=== PATIENT | male | born 1965 | race Two or more races ===

== ENCOUNTER 2018-07-24 09:13 | Inpatient (IN) | payer SELFPAY ==
[~2018-07-24] VITALS: Ht 167.6 cm; Wt 83.9 kg
[2018-07-24] VITALS (11 sets, daily range): BP systolic 120–137; BP diastolic 76–85
--- NOTE | 2018-07-24 11:12 | PDOC ---
Provider Note Provider Note 07/24/2018 1100 Pt admitted initially at [facility]. Presentation with unstable angina features. See by cardiology over there. Transferred to [facility] for LHC. Heparin in place. Reviewed risks and benefits and agreeable to proceed. NOAH DINERO INFORMATION CLERK Jul 24, 2018 11:12
[2018-07-24] MEDS ORDERED: HEPARIN 25,000UTS/500ML PREMIX 500 ML IV PRN (11:30)
[2018-07-24] MEDS ORDERED: MORPHINE SULFATE 2 MG/ML VIAL. IV PRN (11:30)
[2018-07-24] MEDS ORDERED: ONDANSETRON PF 4 MG/2 ML VIAL. IV PRN (11:30)
[2018-07-24] MEDS ORDERED: NITROGLYCERIN SUBLINGUAL 0.4 MG BOTTLE OF 25. SL PRN (11:30)
[2018-07-24] MEDS ORDERED: ACETAMINOPHEN 325 MG TABLET. PO PRN (11:30)
[2018-07-24] MEDS ORDERED: LIDOCAINE 1% PF 2 ML VIAL. ONE (12:01)
[2018-07-24] MEDS ORDERED: IOHEXOL 300 MG/ML 100ML VIAL. ONE (12:01)
[2018-07-24] MEDS ORDERED: MIDAZOLAM HCL/PF 2 MG/2 ML VIAL. ONE (12:56)
[2018-07-24] MEDS ORDERED: fentaNYL PF VIAL 100 MCG/2 ML VIAL ONE (12:56)
[2018-07-24] MEDS ORDERED: HEPARIN for IV BOLUS 10,000 UNIT/10 ML VIAL. ONE (12:56)
[2018-07-24] MEDS ORDERED: VERAPAMIL 5 MG/2 ML VIAL. ONE (12:56)
[2018-07-24] MEDS ORDERED: NITROGLYCERIN 200 MCG/2 ML SYRINGE FOR CATH/VASC LAB. ONE (12:57)
--- NOTE | 2018-07-24 13:29 | PDOC ---
MODERATE SEDATION ASSESSMENT RISKS/ALTERNATIVES Risks/Alternatives Risks and alternatives of this type of sedation and procedure discussed with: RISK/ALTERNATIVES: Patient H & P ON CHART H & P H & P on chart and reviewed for co-morbid conditions and appropriate labs. H&P ON CHART: Yes STATUS PREG STATUS ASSESSED: N/A MEDS/ALLERGIES REVIEWED Meds/Allergies Reviewed Medications and Allergies including time and route of recently administered narcotics and sedatives. MEDS/ALLERGIES REVIEWED: Yes ASA RATING ASA RATING: II AIRWAY ASSESSMENT Airway Assessment Airway patency, oral function limitations, presence of caps, crowns, dentures, partials, and ability to extend neck assessed. AIRWAY ASSESSMENT: Yes MALLAMPATI SCORE MALLAMPATI SCORE: II PRE-SEDATION ASSESSMENT PRE-SEDATION ASSESSMENT: Yes MONICA CRUZ MD Jul 24, 2018 13:29
[2018-07-24] MEDS ORDERED: MIDAZOLAM HCL/PF 2 MG/2 ML VIAL. IV ONE (13:30)
[2018-07-24] MEDS ORDERED: NITROGLYCERIN 200 MCG/2 ML SYRINGE FOR CATH/VASC LAB. IART ONE (13:30)
[2018-07-24] MEDS ORDERED: IOHEXOL 300 MG/ML 100ML VIAL. IART ONE (13:30)
[2018-07-24] MEDS ORDERED: HEPARIN for IV BOLUS 10,000 UNIT/10 ML VIAL. IART ONE (13:30)
[2018-07-24] MEDS ORDERED: VERAPAMIL 5 MG/2 ML VIAL. IART ONE (13:30)
[2018-07-24] MEDS ORDERED: fentaNYL PF VIAL 100 MCG/2 ML VIAL IV ONE (13:30)
[2018-07-24] MEDS ORDERED: LIDOCAINE 1% PF 2 ML VIAL. INJ ONE (13:30)
[2018-07-24] MEDS ORDERED: IV 1/2 NORMAL SALINE 1,000 ML IV SCH (13:30)
[2018-07-24] MEDS ORDERED: TAMS0.4C97 PO (13:37)
--- NOTE | 2018-07-24 13:37 | CARD ---
MR#: [id number] Date of Study: 07/24/2018 Ordering Physician: MONICA ARENAS, Referring Physician: IGOR SEGURA Tech: RT Allen (R) APPROVED REPORT Technologist: RT Allen (R) Nurse: Karlee Schwartz R.N. Procedure(s) performed: Left heart catheterization, selective coronary angiography and left ventricul ography via right transradial approach Moderate sedation: 23 minutes INDICATION The indication(s) include : unstable angina . PROCEDURE NARRATIVE After explaining the risks, benefits and alternative options, informed consent was obtained from maeve ent. Patient was brought to the cardiac [facility] and right wrist was prepped and draped in the usual fashion after confirming a positive modified Kartik's test. Arterial access was obtained in the righ t radial artery and a 6 [place]an sheath was inserted. 6 [place] Maciel and 6 [place] JL 3.5 catheters we re used to perform selective angiography of the right and left coronary arteries. 6 [place] pigtail c atheter was used to perform left ventriculography. Patient tolerated the procedure well. Hemostasis was achieved using TR band. There were no immediate complications. The following findings were not ed. FINDINGS 1. Hemodynamics: Left ventricular end-diastolic pressure of 142mmHg. No pullback gradient across th e aortic valve. 2. Left ventriculography: Normal left ventricle systolic function with ejection fraction estimated at 60%. No significant mitral regurgitation seen. 3. Coronary angiography: a. The left main coronary artery arose from the left sinus of Valsalva, gave rise to the left anteri or descending and left circumflex arteries and did not show any significant stenosis. b. The left anterior descending artery showed minimal luminal irregularities without any significant stenosis. c. The left circumflex artery did not show any significant stenosis. d. The right coronary artery was a large and dominant vessel arising from the right sinus of Valsalv a that did not show any significant stenosis. Conclusion 1. No significant coronary artery disease 2. Normal left ventricle systolic function with ejection fraction estimated at 60%. Signed by : Monica Arenas, Electronically Approved : 07/24/2018 13:36:47
[2018-07-24] MEDS ORDERED: SIMV20TA3 PO (15:42)
[2018-07-24] MEDS ORDERED: ASPI-630 PO (15:43)
--- NOTE | 2018-07-25 08:53 | SSS ---
ADMIT DATE: HISTORY OF PRESENT ILLNESS: The patient is a 53-year-old male patient who was seen in the Emergency Room of [facility]. He reported onset of pain during light activity. He describes pressure in mid left chest, nonradiating with associated racing of his heart, lightheadedness and dyspnea. He had coworkers called 911 and was transported to the emergency department. The pain has lasted about 15 minutes and since then has had pressure off and on throughout the night. He reports improvement in nitrates, had also complained of mild dyspnea with exertion recently and believes it could be asthma, but has no official diagnosis of such. He reports episodes of palpitation lasting about 5 seconds at a time without associated symptoms, has had recent upper respiratory infection including congestion, headache, Namenda a mild nonproductive cough. He denied any fever or chills. 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 He was evaluated in the emergency room. His initial troponin was elevated and therefore, he was admitted to telemetry bed in [facility] and had 2 more sets of cardiac enzymes that are elevated. He was seen in consultation by the cardiology team and it was felt that the patient's chest pain was consistent with unstable angina with mild troponin elevation and was started on heparin, aspirin, nitrates. No beta blockers due to marked bradycardia, was transferred to [facility] where he underwent cardiac catheterization, which showed that the left ventricular end diastolic pressure was 142 mmHg. No pullback gradient across the aortic valve. His left ventriculography showed normal left ventricular systolic function, ejection fraction of 60%, no significant mitral regurgitation seen. Coronary angiography showed that the left main coronary artery arose from the left sinus of Valsalva, gave rise to left anterior descending and left circumflex arteries and did not show any significant stenosis. The left anterior descending artery showed minimal luminal irregularities without any significant stenosis. The left circumflex artery did not show any significant stenosis in the right coronary artery was a large and dominant vessel arising from the right sinus of Valsalva and did not show any significant stenosis and then the conclusion is that the patient has no significant coronary artery disease, normal left ventricular systolic function, ejection fraction of 60% and the patient was basically discharged to continue on aspirin 81 mg once a day, simvastatin 20 mg at bedtime and tamsulosin 0.4 mg at bedtime. PAST MEDICAL HISTORY: Significant for hypertension, hyperlipidemia, gastroesophageal reflux disease, and benign prostatic hypertrophy. PAST SURGICAL HISTORY: Significant for hernia repair and appendectomy. FAMILY HISTORY: Unremarkable. SOCIAL HISTORY: He does not smoke. Drinks alcohol occasionally. Does not use any drugs. ALLERGIES: He is allergic to SULFA DRUGS. MEDICATIONS: He is on tamsulosin 0.4 mg capsule at bedtime. REVIEW OF SYSTEMS: As per history of present illness. PHYSICAL EXAMINATION: GENERAL: On examining him on arrival to [facility], he looked well and was clearly in no apparent respiratory distress. No pallor, jaundice, cyanosis or thyromegaly. No jugular venous distension. No lower limb edema. VITAL SIGNS: His heart rate was 49, blood pressure 127/82, temperature was 98.4, respiratory rate was 16, and oxygen saturation was 97%. HEAD, EYES, EARS, NOSE AND THROAT: Showed normocephalic, atraumatic. NECK: Supple. HEART: Showed normal first and second heart sounds with no gallop, rub or murmur. CHEST: Clear to auscultation. No crepitation or rhonchi. ABDOMEN: Distended, soft, nontender. NEUROLOGIC: He was awake, alert, responding appropriately. Cranial nerves intact. EXTREMITIES: He moves extremities without difficulty. He ambulates without assistance or assistive devices. LABORATORY DATA: His lab work done at [facility] showed a white cell count of 6000, hemoglobin was 15.6, hematocrit 45, MCV was 90 and platelet count 249,000. Serum sodium was 138, potassium 3.4, chloride 105, bicarbonate 25, anion gap of 8, BUN 14, creatinine 1, estimated GFR was 78 mL per minute. His glucose was 114, calcium was 8.9. Total bilirubin was 0.3. AST, ALT, alkaline phosphatase were normal. His EKG showed that he was in sinus rhythm with mild nonspecific ST-T changes. FINAL DISCHARGE DIAGNOSES: Chest pain, myocardial infarction was ruled out, hypertension, hyperlipidemia, gastroesophageal reflux disease, benign prostatic hypertrophy. IGOR SEGURA MD DR: SACHIN/kait JOB#: [id number] / [id number]
== END 2018-07-24 18:26 | disposition home or self-care (01) | DRG 287 ==
LOC: 2 NORTH 10:41
PROVIDERS: ADMIT Internal Medicine; ATTEND Internal Medicine
PROC: 4A023N7 Measurement of Cardiac Sampling and Pressure, Left Heart, Percutaneous Approach (ICD-10-PCS; principal; 2018-07-24)
PROC: B2151ZZ Fluoroscopy of Left Heart using Low Osmolar Contrast (ICD-10-PCS; 2018-07-24)
PROC: B2111ZZ Fluoroscopy of Multiple Coronary Arteries using Low Osmolar Contrast (ICD-10-PCS; 2018-07-24)
DX: I20.0 Unstable angina (principal); E78.5 Hyperlipidemia, unspecified; I10 Essential (primary) hypertension; K21.9 Gastro-esophageal reflux disease without esophagitis; N40.0 Benign prostatic hyperplasia without lower urinary tract symptoms; Z79.899 Other long term (current) drug therapy; Z79.82 Long term (current) use of aspirin; Z88.2 Allergy status to sulfonamides; Z90.49 Acquired absence of other specified parts of digestive tract
CPT/HCPCS: 93458; 99152; 99153; C1769; C1892; J1644; J2250; J3010; J3490; Q9967

== ENCOUNTER 2019-02-18 15:14 | Emergency (ER) | payer SELFPAY ==
[~2019-02-18] VITALS: Ht 177.8 cm; Wt 85.3 kg
[~2019-02-18 15:14] MED LIST: ASPI-630 PO; SIMV20TA3 PO; TAMS0.4C97 PO
--- NOTE | 2019-02-18 15:48 | EKG ---
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 Electronically Signed On 03-14-2019 17:20:21 CDT by Justin Gama
--- NOTE | 2019-02-18 15:58 | PHYS DOC ---
Past Medical History Past Medical History: Hypertension Past Surgical History: Appendectomy Alcohol Use: None Drug Use: None Adult General Chief Complaint Chief Complaint: Palpitations HPI HPI Patient is a 53 year old male who presents with complaining of palpitation. 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 Patient states he had dentist about 30 minutes and tried to back to work and felt generalized weakness and returned home. Patient states he had blood pressure of 240 with heart rate of more 121 decided to come to hospital. Patient states he took 2 aspirin 325 mg today. Patient states 2 other episodes of palpitation for the last 4 months and seen in this emergency room 4 months ago with unremarkable evaluation. Patient did not have Holter monitoring. Review of Systems Review of Systems Constitutional: Denies fever or chills [] Eyes: Denies change in visual acuity, redness, or eye pain [] HENT: Denies nasal congestion or sore throat [] Respiratory: Denies cough, reports shortness of breath [] Cardiovascular: No additional information not addressed in HPI [] GI: Denies abdominal pain, nausea, vomiting, bloody stools or diarrhea [] : Denies dysuria or hematuria [] Musculoskeletal: Denies back pain or joint pain [] Integument: Denies rash or skin lesions [] Neurologic: Denies headache, focal weakness or sensory changes [] Endocrine: Denies polyuria or polydipsia [] All other systems were reviewed and found to be within normal limits, except as documented in this note. Allergies Allergies Allergies Coded Allergies Type Severity Reaction Last Updated Verified Sulfa (Sulfonamide Antibiotics) Allergy Intermediate 07/24/18 Yes Physical Exam Physical Exam Constitutional: Well developed, well nourished, mild distress, non-toxic appearance. [] HENT: Normocephalic, atraumatic, oropharynx moist, no oral exudates, nose normal. [] Eyes: PERRLA, EOMI, conjunctiva normal, no discharge. [] Neck: Normal range of motion, no tenderness, supple, no stridor. [] Cardiovascular:Heart rate regular rhythm, no murmur [] Lungs & Thorax: Bilateral breath sounds clear to auscultation [] Abdomen: Bowel sounds normal, soft, no tenderness, no masses, no pulsatile masses. [] Skin: Warm, dry, no erythema, no rash. [] Back: No tenderness, no CVA tenderness. [] Extremities: No tenderness, no cyanosis, no clubbing, ROM intact, no edema. [] Neurologic: Alert and oriented X 3, normal motor function, normal sensory function, no focal deficits noted. [] Psychologic: Affect normal, judgement normal, mood normal. [] Current Patient Data Vital Signs Vital Signs Date Time Temp Pulse Resp B/P (MAP) Pulse Ox O2 Delivery O2 Flow Rate FiO2 02/18/19 16:45 50 16 115/78 (90) 94 Room Air 02/18/19 15:20 98.2 98.2 Lab Values Laboratory Tests Test 02/18/19 15:25 White Blood Count 6.3 x10^3/uL (4.0-11.0) Red Blood Count 4.83 x10^6/uL (4.30-5.70) Hemoglobin 14.6 g/dL (13.0-17.5) Hematocrit 44.4 % (39.0-53.0) Mean Corpuscular Volume 92 fL (79-100) Mean Corpuscular Hemoglobin 30 pg (25-35) Mean Corpuscular Hemoglobin Concent 33 g/dL (31-37) Red Cell Distribution Width 13.7 % (11.5-14.5) Platelet Count 251 x10^3/uL (140-400) Neutrophils (%) (Auto) 68 % (31-73) Lymphocytes (%) (Auto) 23 % (24-48) L Monocytes (%) (Auto) 7 % (0-9) Eosinophils (%) (Auto) 2 % (0-3) Basophils (%) (Auto) 1 % (0-3) Neutrophils # (Auto) 4.3 x10^3uL (1.8-7.7) Lymphocytes # (Auto) 1.4 x10^3/uL (1.0-4.8) Monocytes # (Auto) 0.4 x10^3/uL (0.0-1.1) Eosinophils # (Auto) 0.1 x10^3/uL (0.0-0.7) Basophils # (Auto) 0.1 x10^3/uL (0.0-0.2) Sodium Level 138 mmol/L (136-145) Potassium Level 3.7 mmol/L (3.5-5.1) Chloride Level 103 mmol/L (98-107) Carbon Dioxide Level 26 mmol/L (21-32) Anion Gap 9 (6-14) Blood Urea Nitrogen 14 mg/dL (8-26) Creatinine 1.0 mg/dL (0.7-1.3) Estimated GFR (Cockcroft-Gault) 78.5 BUN/Creatinine Ratio 14 (6-20) Glucose Level 119 mg/dL (70-99) H Calcium Level 8.6 mg/dL (8.5-10.1) Magnesium Level 2.2 mg/dL (1.8-2.4) Total Bilirubin 0.4 mg/dL (0.2-1.0) Aspartate Amino Transferase (AST) 32 U/L (15-37) Alanine Aminotransferase (ALT) 39 U/L (16-63) Alkaline Phosphatase 88 U/L (46-116) Creatine Kinase 586 U/L (39-308) H Troponin I Quantitative 0.037 ng/mL (0.000-0.055) BX-Mcr-D-Type Natriuretic Peptide 67 pg/mL (0-124) Total Protein 7.4 g/dL (6.4-8.2) Albumin 3.9 g/dL (3.4-5.0) Albumin/Globulin Ratio 1.1 (1.0-1.7) Lipase 128 U/L (73-393) Laboratory Tests 02/18/19 15:25 Laboratory Tests 02/18/19 15:25 EKG EKG EKG interpreted by me. EKG at 1525 showed normal sinus rhythm at rate of 60, normal LA and QT intervals, no acute distention of abnormalities.[] Radiology/Procedures Radiology/Procedures [facility] [address] [place], [place] [id number] IMAGING REPORT Signed PATIENT: KERRI BOWSER ACCOUNT: [id number] : 1965 LOCATION: ER AGE: 53 SEX: M EXAM STATUS: REG ER ORD. PHYSICIAN: ROQUE FAJARDO MD REASON: palpitation PROCEDURE: CHEST PA & LATERAL Chest, 2 views, 02/18/2019: History: Palpitations The heart size and pulmonary vascularity are normal. No pulmonary infiltrate is seen. There is no evidence of pleural fluid. Surgical clips are present in the upper abdomen. IMPRESSION: No acute cardiopulmonary abnormality is detected. DICTATED and SIGNED BY: PADMINI SPENCE MD DATE: 02/18/19 2869 Course & Med Decision Making Course & Med Decision Making Pertinent Labs and Imaging studies reviewed. (See chart for details) Evaluation of patient showed 53-year-old male patient with complaining of one episode of palpitation with dizziness and near syncope. Patient did not have chest pain and states she had the same episode previously. Patient had unremarkable physical exam and labs except for mild elevation of CPK. She was informed about this result and is to follow-up with her account information clerk for possible Holter monitoring evaluation and avoid of drinking caffeine. There was a possibility that patient had a panic attack because he stated he was under stress recently. Dragon Disclaimer Dragon Disclaimer This electronic medical record was generated, in whole or in part, using a voice recognition dictation system. Departure Departure Impression: Primary Impression: Palpitation Additional Impression: Elevated CPK Disposition: HOME, SELF-CARE (at 1710) Condition: IMPROVED Referrals: UNKNOWN PCP NAME (PCP) MONICA CRUZ MD Patient Instructions: Palpitations Additional Instructions: Drink plenty of liquids Follow-up with on-call account information clerk in 3-5 days Return to ER if not getting better Do not take too much caffeine Problem Qualifiers ROQUE FAJARDO MD February 18, 2019 15:58
[2019-02-18 16:07] LABS: BASO # 0.1 x10^3/uL (0.0-0.2); BASO % 1 % (0-3); EOS # 0.1 x10^3/uL (0.0-0.7); EOS % 2 % (0-3); HEMATOCRIT 44.4 % (39.0-53.0); HEMOGLOBIN 14.6 g/dL (13.0-17.5); LYMPH # 1.4 x10^3/uL (1.0-4.8); LYMPH % 23 % (24-48); MEAN CORPUSCULAR HEMOGLOBIN 30 pg (25-35); MEAN CORPUSCULAR HGB CONC 33 g/dL (31-37); MEAN CORPUSCULAR VOLUME 92 fL (79-100); MONO # 0.4 x10^3/uL (0.0-1.1); MONO % 7 % (0-9); NEUT # 4.3 x10^3uL (1.8-7.7); NEUT % 68 % (31-73); PLATELET COUNT 251 x10^3/uL (140-400); RED BLOOD COUNT 4.83 x10^6/uL (4.30-5.70); RED CELL DISTRIBUTION WIDTH 13.7 % (11.5-14.5); WHITE BLOOD COUNT 6.3 x10^3/uL (4.0-11.0)
[2019-02-18 16:17] LABS: CALCIUM 8.6 mg/dL (8.5-10.1); GFR 78.5; POTASSIUM 3.7 mmol/L (3.5-5.1)
[2019-02-18 16:25] LABS: ALBUMIN 3.9 g/dL (3.4-5.0); ALBUMIN/GLOBULIN RATIO 1.1 (1.0-1.7); MAGNESIUM 2.2 mg/dL (1.8-2.4); TOTAL BILIRUBIN 0.4 mg/dL (0.2-1.0); TOTAL PROTEIN 7.4 g/dL (6.4-8.2)
--- NOTE | 2019-02-18 16:56 | RAD ---
Chest, 2 views, 02/18/2019: History: Palpitations The heart size and pulmonary vascularity are normal. No pulmonary infiltrate is seen. There is no evidence of pleural fluid. Surgical clips are present in the upper abdomen. IMPRESSION: No acute cardiopulmonary abnormality is detected.
[2019-02-18 17:30] VITALS: BP 128/76
== END 2019-02-18 17:41 | disposition home or self-care (01) ==
LOC: ER 15:14
DX: R00.2 Palpitations (principal); R74.8 Abnormal levels of other serum enzymes; R42 Dizziness and giddiness; R55 Syncope and collapse; R06.02 Shortness of breath; R53.1 Weakness; I10 Essential (primary) hypertension; Z90.89 Acquired absence of other organs; Z88.2 Allergy status to sulfonamides
CPT/HCPCS: 36415; 71046; 80053; 82550; 83690; 83735; 83880; 84484; 85025; 93005; 99285-25